=== PATIENT | female | born 1955 | race Caucasian/White ===

== ENCOUNTER → 2020-03-16 15:08 | Outpatient (CLI) | payer OTHER, SELFPAY ==
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
--- NOTE | ~2020-03-16 | XR_ITS ---
EXAMINATION: XR lumbar spine min 4V EXAM DATE: 03/16/2020 15:35 INDICATION: Low back pain. TECHNIQUE: Lumber spine frontal, lateral, bilateral oblique projections. Coned down frontal and lat eral L5-S1 lumbar projections for interpretation. There is no prior study for comparison. FINDINGS: Mild disc disease L3-4 and L5-S1. The vertebral bodies are aligned in the AP dimension. Maciej tebral body heights are maintained. There are no acute fractures identified. Sacrum, sacroiliac joint s, sacral arcuate lines are intact. No spondylolysis. Mild diffuse lumbar facet arthropathy. Paraspin al soft tissue is unremarkable. IMPRESSION: Mild lumbar spondylosis. Reviewed, dictated and finalized at location B. IMPRESSION: Mild lumbar spondylosis.
== END ==
PROVIDERS: PCP Family Medicine; Visit Provider Chiropractor
DX: M54.32 Sciatica, left side (principal); M99.03 Segmental and somatic dysfunction of lumbar region; M47.896 Other spondylosis, lumbar region
CPT/HCPCS: 72070; 72110

== ENCOUNTER → 2020-10-30 17:53 | Outpatient (CLI) | payer OTHER, SELFPAY ==
--- NOTE | ~2020-10-30 | XR_ITS ---
XR shoulder RT min 2V 10/30/2020 18:43 Indication: Chronic right shoulder pain Procedure: 4 views right shoulder Comparison: No prior studies for comparison. Findings: No fracture, subluxation or dislocation. There is anatomic alignment. Surrounding soft tiss ues and bones are unremarkable. Impression: 1: No significant bone or joint abnormality. Reviewed, dictated and finalized at location A. Impression: 1: No significant bone or joint abnormality.
== END ==
DX: M25.511 Pain in right shoulder (principal); G89.29 Other chronic pain
CPT/HCPCS: 73030

== ENCOUNTER → 2021-10-04 15:15 | Outpatient (CLI) | payer OTHER, SELFPAY ==
--- NOTE | ~2021-10-04 | MM_ITS ---
EXAMINATION: MM screening [facility] BI w [facility] HISTORY: Screening TECHNIQUE: Craniocaudal and mediolateral oblique 3-D tomosynthesis images were obtained and synthetic 2-D images were generated. CAD analysis was submitted and interpreted. COMPARISON: No prior mammogram is available for comparison at this institution. BREAST PARENCHYMAL COMPOSITION: The breasts are almost entirely fatty. FINDINGS: There is no evidence of suspicious mass, calcification, or architectural distortion to sugg est malignancy in either breast. There has been no suspicious interval change. IMPRESSION: 1. No mammographic evidence of malignancy. 2. Recommend routine screening mammography in one year. BI-RADS Category 1: Negative Reviewed, dictated and finalized at location A.
== END ==
DX: Z12.31 Encounter for screening mammogram for malignant neoplasm of breast (principal)
CPT/HCPCS: 77063; 77067

== ENCOUNTER 2022-01-06 12:10 | Emergency (ER) | payer OTHER, SELFPAY ==
--- NOTE | 2022-01-06 12:15 | ED.URI ---
HPI - URI/Sore Throat General Chief Complaint: Upper Respiratory Infection Stated Complaint: COLD/CONGESTION/COUGH Time Seen by Provider: 01/06/22 13:05 Source: patient and RN notes reviewed Mode of arrival: ambulatory Limitations: no limitations History of Present Illness HPI Narrative: 66-year-old female presents concern for 3-day history of nasal congestion, cough, chest congestion, low-grade temperature, wheezing at nighttime. She reports her is positive for COVID, she tested negative on Friday, which was day 1 of symptoms. She denies shortness of breath, nausea, vomiting, diarrhea MD elicited complaint: cough and nasal congestion Related Data Home Medications Medication Instructions Recorded Confirmed atenolol 50 mg tablet 50 mg PO DAILY 01/06/22 01/06/22 azelastine 137 mcg (0.1 %) nasal 2 spray intranasal BID 01/06/22 01/06/22 spray aerosol cetirizine 10 mg tablet (Zyrtec) 10 mg PO DAILY 01/06/22 01/06/22 Allergies Allergy/AdvReac Type Severity Reaction Status Date / Time alendronate sodium Allergy Swelling Verified 01/06/22 13:14 [From Fosamax] of Lip/Tongue/Throat camphor [From Biofreeze] Allergy Rash Verified 01/06/22 12:38 ciprofloxacin [From Cipro] Allergy Swelling Verified 01/06/22 12:38 of Lip/Tongue/Throat doxycycline Allergy Swelling Verified 01/06/22 12:38 of Lip/Tongue/Throat iodine Allergy Hives Verified 01/06/22 12:38 Iodine and Iodide Containing Allergy Swelling Verified 01/06/22 12:38 Produc of Lip/Tongue/Throat menthol [From Biofreeze] Allergy Rash Verified 01/06/22 12:38 Tetracyclines Allergy Swelling Verified 01/06/22 12:38 of Lip/Tongue/Throat Review of Systems Review of Systems: CONSTITUTIONAL: Reports malaise, low-grade fever. EYES: Denies visual changes, redness, or discharge. ENT: Reports rhinorrhea, congestion. Denies sinus pain, otalgia and sore throat. CARDIOVASCULAR: Denies chest pain, palpitations, or edema. RESPIRATORY: Reports cough, chest congestion Denies dyspnea. GASTROINTESTINAL: Denies abdominal pain, nausea, vomiting, diarrhea SKIN: Denies rash or itching. MUSCULOSKELETAL: Reports myalgia. NEUROLOGIC: Denies headache. All systems reviewed & are unremarkable except as noted in HPI and below PMFSH Comments At time of signature, agree with nursing past medical, surgical, social and family history. There is no relevant family history pertinent to the presenting complaint Exam Narrative: GENERAL: Nontoxic-appearing and in no acute distress. HEAD: Normocephalic EYES: PERRLA, conjunctivae clear ENT: Nares clear, turbinates edematous and erythematous, clear discharge. Mucous membranes moist. TM pearly vaughn with dull light reflex bilaterally; no tragal tenderness. Oropharynx not erythematous without lesions. Tonsils not enlarged and without exudate, no drooling, no hoarseness, no trismus, uvula midline. NECK: Supple. No lymphadenopathy CHEST: Clear to auscultation, breath sounds equal. No wheezing, rhonchi, rales, or stridor. No respiratory distress, speaks in full sentences. Cough noted HEART: Regular rate and rhythm. No murmur heard. SKIN: Warm, dry, no rash. NEURO: Alert and oriented x3. PSYCH: Normal mood and affect Course Course Emergency Course: Discussed option of treatment with Paxlovid, patient declines Patient is aware of diagnosis, understands and agrees to treatment plan. Anticipatory guidance given. Patient agrees to follow-up as directed and is aware of reasons to seek care at the emergency department. Portions of this record may have been created with voice recognition software Level of Care: Express Care Visit Vital Signs Vital signs: Reviewed. MDM - URI/Sore Throat MDM Narrative Medical decision making narrative: Differential diagnosis considered: [place] virus, strep pharyngitis, allergic rhinitis, upper respiratory tract infection, sinusitis, rhinosinusitis, nasopharyngitis. viral ph
[2022-01-06 12:43] VITALS: BP 131/74; PULSE 75; RESP 20; TEMP 37.7; O2SAT 98
== END 2022-01-06 13:38 | disposition home or self-care (01) ==
PROVIDERS: Emergency Provider Nurse Practitioner
DX: U07.1 COVID-19 (principal); G47.30 Sleep apnea, unspecified
CPT/HCPCS: 87426; 99213; C9803; G0463